=== PATIENT | female | born 1990 | race Two or more races ===

== ENCOUNTER 2018-12-17 20:56 | Emergency (ER) | payer OTHER ==
[~2018-12-17] VITALS: Ht 165.1 cm; Wt 95.0 kg
[2018-12-17] MEDS ORDERED: ACETAMINOPHEN 325MG TABLET PO ONE (23:30)
[2018-12-18] MEDS ORDERED: HYDROCODONE/ACETAMINOPHEN 5/325MG TABLET PO ONE (01:45)
[2018-12-18 02:39] VITALS: BP 133/19
== END 2018-12-18 02:42 | disposition home or self-care (01) ==
LOC: ER 20:56
DX: S40.011A Contusion of right shoulder, initial encounter (principal); S09.90XA Unspecified injury of head, initial encounter; W20.8XXA Other cause of strike by thrown, projected or falling object, initial encounter; Y93.9 Activity, unspecified; Y92.9 Unspecified place or not applicable; Z88.3 Allergy status to other anti-infective agents
CPT/HCPCS: 73030; 81025; 99284